=== PATIENT | female | born 1975 ===

== ENCOUNTER 2017-03-14 09:42 | Emergency (ER) | payer SELFPAY ==
[2017-03-14 11:23] VITALS: BP 114/78
== END 2017-03-14 11:35 | disposition left against medical advice (07) ==
LOC: ED 09:42
DX: R51 Headache (principal); M54.2 Cervicalgia; R42 Dizziness and giddiness; Z53.21 Procedure and treatment not carried out due to patient leaving prior to being seen by health care provider